=== PATIENT | female | born 1955 | race Caucasian/White ===

== ENCOUNTER → 2022-12-10 | Outpatient (CLI) | payer MEDICARE, SELFPAY ==
--- NOTE | 2022-12-10 14:06 | FLU_PTH ---
PATIENT: RIGO BOLANOS LOC: [facility] U#:[id number] AGE/SX: 67/F ROOM: RE12/10/[address]: Dr. Girish Camarillo MD : [id number] BED: DIS: 12/10/2022 SPEC #: [id number] RECD: 12/10/22 16:47 STATUS: JESÚS JEWEL #: [id number] NAVJOT: 12/10/22 14:[address]: Girish Camarillo DEPT: CYTOLOGY RECD BY: Autumn Balbuena ENTERED: 12/13/22 11:14 SP TYPE: Fluid OTHR DR: Dr. Luis Montes De Oca MD Tissues: A - Thyroid gland, NOS B - Thyroid gland, NOS C - Thyroid gland, NOS D - Thyroid gland, NOS Procedures: Special Stain Group II Surgery Specimen Level IV Cytospin Fluid Cytology Other HEADER OPERATION: Fine needle aspiration right thyroid PRE-OP DIAGNOSIS: Multiple thyroid nodules TISSUE SUBMITTED: A ? Right inferior thyroid nodule, B - Right inferior thyroid nodule x12 slides, C ? Right superior thyroid nodule, D - Right superior thyroid nodule x12 slides DIAGNOSIS CYTOLOGY A. Right inferior thyroid nodule, fine needle aspiration (cytospin and cell block): Adequate for evaluation. Benign, consistent with benign follicular/colloid nodule with cystic change (Dickinson Category II). See comment. B. Right inferior thyroid nodule, fine needle aspiration (smears): Adequate for evaluation. Benign, consistent with benign follicular/colloid nodule (Dickinson Category II). See comment. C. Right superior thyroid nodule, fine needle aspiration (cytospin and cell block): Adequate for evaluation. Benign, consistent with benign follicular/colloid nodule (Dickinson Category II). See comment. D. Right superior thyroid nodule, fine needle aspiration (smears): Adequate for evaluation. Benign, consistent with benign follicular/colloid nodule (Dickinson Category II). See comment. AM:everett 12/14/2022 COMMENT A-D. The Dickinson System for thyroid diagnostic categorization was used in the evaluation of this case. The specimen is adequate for evaluation. CYTOLOGY STUDY Slides are reviewed. CYTOLOGY GROSS A - Received is 20 ml of brown cloudy fluid labeled with the patient's name and and designated per the requisition as right inferior thyroid nodule. Submitted for cytology preparation including cell block. B - Received are 12 smears labeled with the patient's name and designated per the requisition as right inferior thyroid nodule. Submitted for staining. C - Received is 20 ml of brown cloudy fluid labeled with the patient's name and and designated per the requisition as right superior thyroid nodule. Submitted for cytology preparation including cell block. D - Received are 12 smears labeled with the patient's name and designated per the requisition as right superior thyroid nodule. Submitted for staining. / everett 12/13/2022 TC:5 CPT: 29403 x4, 82666 x2
== END | disposition home or self-care (01) ==
PROVIDERS: PCP Nurse Practitioner Family; Visit Provider Surgery
DX: E04.2 Nontoxic multinodular goiter (principal)
CPT/HCPCS: 88108; 88161; 88305; 88313